=== PATIENT | female | born 1970 | race Hispanic/Latino ===

== ENCOUNTER 2020-12-05 10:14 | Outpatient (CLI) | payer OTHER ==
--- NOTE | 2020-12-05 12:21 | Mammography Report ---
DIGITAL SCREENING MAMMOGRAM WITH CAD, 12/05/2020 CLINICAL INFORMATION / INDICATION: Routine screening mammography. SCREENING MAMMO TECHNIQUE: Digital bilateral 2D mammography was obtained in the craniocaudal and mediolateral obliqu e projections. This examination was interpreted with the benefit of Computer-Aided Detection analysis . COMPARISON: There are no prior mammograms available for comparison. FINDINGS: Breast Density: There are scattered areas of fibroglandular density. No dominant mass, suspicious calcifications, or architectural distortion in either breast. IMPRESSION: No mammographic evidence of malignancy. Follow up recommendation: Routine yearly BI-RADS Category 1: Negative. A "normal" or negative report should not discourage follow up or biopsy of a clinically significant f inding. A written summary of these findings will be mailed to the patient. The patient will be entered into a mammography reporting system which will generate a reminder letter for the patient's next appointmen t at the appropriate interval. The [employer] recommends yearly mammograms starting at age 40 and continuing as l beth as a woman is in good health. Breast MRI is recommended for women with an approximate 20-25% or greater lifetime risk of breast cancer, including women with a strong family history of breast or ova silvio cancer or who have been treated for Hodgkin's disease. Signer Name: Herberth Britt MD Signed: 12/05/2020 12:17 PM Workstation Name: [id number]
== END 2020-12-05 10:15 | disposition home or self-care (01) ==
LOC: SPVWC 10:14
PROVIDERS: ATTEND Nurse Practitioner Family
DX: Z12.31 Encounter for screening mammogram for malignant neoplasm of breast (principal)
CPT/HCPCS: 77067